=== PATIENT | male | born 1965 | race Two or more races ===

== ENCOUNTER → 2020-06-02 | Day surgery (SDC) | payer OTHER ==
[~2020-06-02] VITALS: Ht 170.2 cm; Wt 87.1 kg
[2020-06-02] VITALS (11 sets, daily range): BP systolic 111–146; BP diastolic 56–96
[~2020-06-02] MED LIST: D5 1/2NS 1,000 ML IV SCH; Duramorph PF 5mg/10ml amp ONE; EPINEPHrine 1mg/1ml Amp ONE; HYDROcodone/Acetamin 5/325 tab ORAL PRN; HYDROmorphone 1mg/ml Carpuject SUBQ PRN; Kenalog-40 1ml Vial ONE; Ketorolac 30mg Inj ONE; Lidocaine 1% MPF 10mg/ml 5ml ONE; Midazolam 2mg/2ml Inj ONE; NS Irrig 3000ml IRRIG ONE; Ropivacaine 5mg/ml Vial 30ml INJ ONE; Sodium Chloride 10ml vial INJ ONE; Tylenol #3 tab (300mg/30mg) ORAL PRN; ceFAZolin 1gm IVPB IVPB ONE; celeBREX 200mg Cap **SURGERY PATIENTS ONLY ORAL ONE; ePHEDrine 50mg/ml Inj ONE; fentaNYL 100 mcg/2 mL IV ONE; oxyCONTIN 20mg tab ORAL ONE
--- NOTE | 2020-06-02 07:51 | Pre-Procedure Note/Attestation ---
Pre-Procedure Note/Attestation Complete Prior to Procedure Planned Procedure: right Procedure Narrative: shoulder arthroscopy, possible rc repair, sad Indications for Procedure Pre-Operative Diagnosis: right shoulder rc tear Attestation I attest that I discussed the nature of the procedure; its benefits; risks and complications; and alternatives (and the risks and benefits of such alterna tives), prior to the procedure, with the patient (or the patient's legal computer help desk representative). I attest that, if there was a reasonable possibility of needing a blood transfusion, the patient (or the patient's legal computer help desk representative) was given the [facility] standardized written summary, pursuant to the [place]or [place] Blood Safety Act ([place] Health and Safety Code # 1645, as amended). I attest that I re-evaluated the patient just prior to the surgery and that there has been no change in the patient's H&P, except as documented below: Alvaro Horn MD Jun 02, 2020 07:51
--- NOTE | 2020-06-02 07:51 | Operative Note - PDOC ---
Operative Note Operative Note Pre-op Diagnosis: right shoulder rc tear Procedure: see op report Post-op Diagnosis: same as pre-op plus Operative Findings: consistent w/pre-op dx studies Anesthesia: regional Specimen: none Complications: none Condition: stable Estimated Blood Loss: none Implant(s) used?: No Alvaro Horn MD Jun 02, 2020 07:51
--- NOTE | 2020-06-02 08:22 | Anethesia Preoperative Eval ---
Anesthesia Pre-op PMH/ROS General Date of Evaluation: Jun 02, 2020 Time of Evaluation: 08:18 Anesthesiologist: Jose Daniel ASA Score: ASA 2 Mallampati Score Class I : Soft palate, uvula, fauces, pillars visible Class II: Soft palate, uvula, fauces visible Class III: Soft palate, base of uvula visible Class IV: Only hard plate visible Mallampati Classification: Class II Surgeon: Kory Diagnosis: R shoulder pain Surgical Procedure: R shoulder scope Anesthesia History: none Family History: no anesthesia problems Allergies: Coded Allergies: No Known Allergies (Unverified , 06/02/20) Medications: see eMAR Patient NPO?: Yes Past Medical History Cardiovascular: Denies: HTN, CAD, AR, valve dz, arrhythmia, other Pulmonary: Denies: asthma, COPD, LOW, other Gastrointestinal/Genitourinary: Reports: GERD - mild; Denies: CRI, ESRD, other Neurologic/Psychiatric: Denies: dementia, CVA, depression/anxiety, TIA, other Endocrine: Denies: DM, hypothyroidism, steroids, other HEENT: Denies: cataract (L), cataract (R), glaucoma, [place] (L), [place] (R), other Hematology/Immune: Denies: anemia, DVT, bleeding disorder, other Musculoskeletal/Integumentary: Denies: OA, RA, DJD, DDD, edema, other Other: other - overweight PMH Narrative: as above PSxH Narrative: knee arthroscopy Anesthesia Pre-op Phys. Exam Physician Exam Last Vital Signs Date Time Temp Pulse Resp B/P (MAP) Pulse Ox O2 Delivery O2 Flow Rate FiO2 06/02/20 06:19 97.2 56 20 137/96 98 Room Air Constitutional: NAD Neurologic: CN 2-12 intact Cardiovascular: RRR, no M/R/G Respiratory: CTA Gastrointestinal: S/NT/ND Airway Exam Mallampati Score: Class II MO: full Neck: flexible ROM: full Teeth: missing Dentures: no upper, no lower Anesthesia Pre-op A/P Labs see chart Studies Pre-op Studies: EKG - NSR Risk Assessment & Plan Assessment: ASA 2 Plan: GA with LMA, brachial plexus block for postop pain control Status Change Before Surgery: No Pre-Antibiotics Drug: Ancef 2gr. Given Within 1 Hr of Incision: Yes Time Given: 09:50 Henry Sky MD Jun 02, 2020 08:22
--- NOTE | 2020-06-02 10:41 | Immediate Post-Op Evaluation ---
Immediate Post-Op Evalulation Immediate Post-Op Evalulation Procedure: R shoulder arthroscopy,RC repair, decompression Date of Evaluation: Jun 02, 2020 Time of Evaluation: 10:40 IV Fluids: 700 Blood Products: none Estimated Blood Loss: min Urinary Output: none Blood Pressure Systolic: 125 Blood Pressure Diastolic: 68 Pulse Rate: 62 Respiratory Rate: 18 O2 Sat by Pulse Oximetry: 99 Temperature (Fahrenheit): 97.6 Pain Score (1-10): 1 Nausea: No Vomiting: No Complications none Patient Status: reacts, patent, none Hydration Status: adequate Henry Sky MD Jun 02, 2020 10:41
--- NOTE | 2020-06-02 12:22 | 48 Hour Post Anesthesia Eval ---
Post Anesthesia Evaluation Procedure: R shoulder arthroscopy,RC repair, decompression Date of Evaluation: Jun 02, 2020 Time of Evaluation: 12:21 Blood Pressure Systolic: 136 0: 79 Pulse Rate: 68 Respiratory Rate: 18 Temperature (Fahrenheit): 97.8 O2 Sat by Pulse Oximetry: 98 Airway: patent Nausea: No Vomiting: No Pain Intensity: 2 Hydration Status: adequate Cardiopulmonary Status: stable Mental Status/LOC: patient returned to baseline Follow-up Care/Observations: n/a Post-Anesthesia Complications: none Follow-up care needed: ready to discharge Henry Sky MD Jun 02, 2020 12:22
--- NOTE | 2020-06-02 13:44 | Operative Note - Dictated ---
DATE OF OPERATION: 06/02/2020 PREOPERATIVE DIAGNOSES: 1. Right shoulder SLAP tear. 2. Right shoulder partial rotator cuff tear. 3. Right shoulder impingement syndrome/bursitis. POSTOPERATIVE DIAGNOSES: 1. Right shoulder SLAP tear. 2. Right shoulder partial rotator cuff tear. 3. Right shoulder impingement syndrome/bursitis. PROCEDURES: 1. Right shoulder arthroscopy and extensive intra-articular debridement. 2. Right shoulder biceps tenodesis. 3. Right shoulder subacromial decompression bursectomy. SURGEON: Alvaro Horn MD. ANESTHESIA: MAC with interscalene. INDICATION FOR PROCEDURE: The patient is a pleasant gentleman, who has had progressive right shoulder pain. The patient had an MRI, which showed a SLAP tear with a partial rotator cuff tear. The patient failed conservative treatment and elected to undergo right shoulder arthroscopy versus repair versus debridement of the SLAP tear/rotator cuff tear. Risks, limitations, expectations, and complications related to the procedure were discussed in detail. All questions addressed. DESCRIPTION OF PROCEDURE: After informed consent obtained, the patient was brought to the operating room. The patient was placed under general anesthesia. Right shoulder was prepped and draped in a sterile manner. Time-out was performed. Inferolateral stab incision was then made. Trocar was placed in the glenohumeral joint. Systematic tour of the shoulder was performed. There was fraying of the superior labrum as well as rotator cuff. The tearing of the superior labrum extended to biceps tendon with more than 50% compromise in the biceps tendon. Two Prolene sutures were then placed through the biceps tendon. Biceps tenodesis was performed. Debridement of the superior labrum down to stable rim of tissue was performed. Once that was completed, articular side of the rotator cuff was debrided. The patient had less than 50% partial articular-sided rotator cuff tear. At this point, the camera was placed in the subacromial place. Bursectomy was performed. The acromion was identified. Acromioplasty was started from lateral to medial, completed from posterior to anterior. Once that was done, the soft tissue biceps tenodesis was performed, repair of the biceps tendon and soft tissue using Prolene sutures. Once that was done, the camera was placed in the glenohumeral joint. Shoulder was taken through range of motion. The biceps tendon was nice and intact. At this point, the instruments were removed. Portal sites were closed with 3-0 Monocryl sutures. Steri-Strips and a sterile dressing were applied. ESTIMATED BLOOD LOSS: None. COMPLICATIONS: None. SPECIMENS: None. IMPLANTS: None. Alvaro Horn M.D. DR: RYAN JOB#: [id number] CC:
== END | disposition home or self-care (01) ==
LOC: SUR 05:51
DX: S43.431A Superior glenoid labrum lesion of right shoulder, initial encounter (principal); M75.111 Incomplete rotator cuff tear or rupture of right shoulder, not specified as traumatic; M75.41 Impingement syndrome of right shoulder; M71.9 Bursopathy, unspecified; M75.21 Bicipital tendinitis, right shoulder; X58.XXXA Exposure to other specified factors, initial encounter; Y92.9 Unspecified place or not applicable; K21.9 Gastro-esophageal reflux disease without esophagitis; E66.3 Overweight; Z68.30 Body mass index [BMI] 30.0-30.9, adult
CPT/HCPCS: 29822; 29828; J0171; J0690; J1885; J2250; J2704; J2795; J3010; J3301; U0004